=== PATIENT | female | born 1970 | race Caucasian/White ===

== ENCOUNTER → 2020-05-08 | Outpatient (CLI) | payer OTHER ==
[~2020-05-08] MED LIST: ADULT LOW DOSE81 MG PO; ASMANEX0.24 G1 IH; HYDROXYZINE HCL25 M2 PO; NORVASC 5 MG TAB5 MG PO; PROVENTIL; PROZAC40 MG PO; TRICOR145 MG PO
== END ==
LOC: M.ULTRA 07:30
PROVIDERS: ATTEND Family Medicine
DX: K76.0 Fatty (change of) liver, not elsewhere classified (principal); R74.8 Abnormal levels of other serum enzymes